=== PATIENT | male | born 1990 | race Asian ===

== ENCOUNTER 2017-04-13 15:52 | Emergency (ER) | payer OTHER ==
[~2017-04-13] VITALS: Ht 172.7 cm; Wt 67.7 kg
[2017-04-13 15:54] VITALS: BP 153/91; PULSE 106; O2SAT 100; Ht 172.7 cm; Wt 67.7 kg
[2017-04-13] MEDS ORDERED: HIV POST EXPOSURE PROPHYLAXIS KIT STA (17:08)
--- NOTE | 2017-04-13 17:31 | EMERGENCY ROOM VISIT NOTE ---
ED Visit Note First contact with patient: 16:00 CHIEF COMPLAINT: "I'm here for PEP" HISTORY OF PRESENT ILLNESS: This 26-year-old male patient presents to the emergency department, ambulatory, stating he would like postexposure prophylaxis for HIV. The patient was having intercourse with a male last night , when the condom broke. The patient states he was having anal sex, where he was inserting his penis into the other man's anus. The patient states he does not know the other gentleman, and has no way of knowing if the patient is HIV positive or would get tested. The patient states the other male was on PREP, however HIV status is unknown. The patient denies any extreme fatigue, penile discharge, urinary symptoms, or other concerning symptoms. REVIEW OF SYSTEMS: A 6 system review of systems was performed with positives and pertinent negatives listed in the history of present illness. All other systems were reviewed and are negative. ALLERGIES: None MEDICATIONS: None PMH: Eczema Social Hx: The patient lives locally with his boyfriend. He denies drug, tobacco use. He admits to occasional alcohol use. PHYSICAL EXAM: VITALS: Vitals are noted on the nurse's note and reviewed by myself. Vital signs stable. GENERAL: This is a 26 year old male, in no acute distress, nondiaphoretic , well-developed well-nourished. SKIN: The skin was without rashes, erythema, edema, or bruising. There is no tenting of the skin. Capillary reflex less than 2 seconds. NECK: Supple without nuchal rigidity. No lymphadenopathy. No thyromegaly. Cervical spine is nontender. No JVD. HEART: Regular rate and rhythm without murmurs gallops or rubs. LUNGS: Clear to auscultation bilaterally without wheezes, rales or rhonchi. No dullness to percussion. No retractions or accessory muscle use. MUSCULOSKELETAL: No muscle atrophy, erythema, or edema noted. Full range of motion without joint tenderness in all extremities. No tenderness to palpation. Normal gait. Strength 5/5 throughout. NEURO: Patient was alert and oriented to person place and time. Normal sensation to light and sharp touch. No focal neurological deficits. EMERGENCY DEPARTMENT COURSE: She was seen and evaluated as above. I did contact the postexposure hotline. The patient's risk of garret HIV from a known HIV positive partner is 0.11%. With consistent use of PREP, the risk of garret HIV is approximately 15%. I did relay this information to the patient, and he states he would like to go forward with taking PEP medications. Baseline CMP was ordered and performed, and did not show abnormal liver enzymes. Other Baseline testing was ordered. The patient was given a home pack of PEP medications. I did offer STI prophylaxis and the patient declines. Discharge instructions were reviewed and the patient was discharged home in good condition. I attest that I have personally reviewed the patient's current medication list. Patient was found to have normal blood pressure on screening and does not require follow-up. DIFFERENTIAL DIAGNOSIS: HIV exposure, STI, UTI, and others DIAGNOSIS: High risk homosexual behavior, possible HIV exposure Current/Historical Medications Scheduled Ondasetron Odt (Zofran Odt), 4 MG SL Q6H Allergies Coded Allergies: No Known Allergies (Unverified , 01/02/16) Vital Signs Date Time Temp Pulse Resp B/P (MAP) Pulse Ox O2 Delivery O2 Flow Rate FiO2 04/13/17 15:54 106 16 153/91 100 Room Air Laboratory Results 04/13/17 16:48 Test 04/13/17 16:48 Anion Gap 10.0 mmol/L (3-11) Est Creatinine Clear Calc Drug Dose 94.8 ml/min Estimated GFR () 102.7 Estimated GFR (Non- 88.6 BUN/Creatinine Ratio 12.1 (10-20) Calcium Level 9.8 mg/dl (8.5-10.1) Total Bilirubin 0.5 mg/dl (0.2-1) Aspartate Amino Transf (AST/SGOT) 34 U/L (15-37) Alanine Aminotransferase (ALT/SGPT) 41 U/L (12-78) Alkaline Phosphatase 98 U/L (45-117) Total Protein 9.2 gm/dl (6.4-8.2) Albumin 4.8 gm/dl (3.4-5.0) Globulin 4.4 gm/dl (2.5-4.0) Albumin/Globulin Ratio 1.1 (0.9-2) Hepatitis C Antibody NEG (NEG) HIV (1&2) Ab and P24 Ag, 4th Gener NEG (NEG) Medications Administered Medications (Trade) Dose Ordered Sig/Luis Route Start Time Stop Time Status Last Admin Dose Admin Miscellaneous (Hiv Post Exposure Prophylaxis Kit) 1 ea NOW STAT N/A 04/13/17 17:08 04/13/17 17:09 DC 04/13/17 18:21 1 EA Departure Information Impression Primary Impression: High risk homosexual behavior Dispostion Home / Self-Care Condition GOOD Prescriptions Ondasetron Odt (ZOFRAN ODT) 4 Mg Tab 4 MG SL Q6H for Nausea, #6 TAB Prov: Lisandra Jackson PA-C 04/13/17 Referrals No Doctor, Assigned (PCP) Patient Instructions ED HIV Testing Off Site Referral, My [facility] Additional Instructions He was seen in the emergency department today for post exposure prophylaxis for HIV. You were given prescriptions for Truvada and Pivicay. Please take these medications one tablet orally once per day for 28 days. You will need to follow- up with the [facility] this week to get the rest of the prescription. As discussed, and these medications can cause liver toxicity as well as GI upset. You were given a prescription for Zofran to help with nausea. You were tested at baseline for hepatitis B, HIV, and hepatitis C. He did have a liver profile test performed as well, which was normal. You will need follow- up testing as follows: If the hepatitis B surface antibody is negative, you'll need to have hepatitis B vaccine series restarted. If this test is negative, at 6 months, after the vaccination series, you should have a hepatitis B total core antigen and hepatitis B surface antibody and titer performed. In 2 weeks, you must have a repeat CMP to evaluate your liver function. In 6 weeks, You will need to have a hepatitis [employer] test performed as well as a repeat HIV test. In 3-4 months, you should have a repeat HIV test. In 6 months, you should have a hepatitis C antibody test performed. Please follow up with the [facility] regarding this ongoing testing. You were provided the telephone number. Please call them tomorrow to schedule an appointment to be seen. As discussed, you may want to consider taking PREP for prophylaxis of HIV depending on your sexual practices. This is a daily medication that you take, and you should discuss this with your PCP. For more information, you may contact the PREP hotline at [phone]. Please return to the emergency department for concerning symptoms including severe nausea or vomiting, fever, penile discharge, severe fatigue, wounds that do not heal, or others.
[2017-04-13 17:35] LABS: BUN/CREATININE RATIO 12.1 (10-20); CALCIUM 9.8 mg/dl (8.5-10.1); CREATININE 1.15 mg/dl (0.60-1.40); POTASSIUM 3.6 mmol/L (3.5-5.1)
[2017-04-13 17:38] LABS: ALB/GLOB RATIO 1.1 (0.9-2)
[2017-04-13] MEDS ORDERED: ONDA4TAB10 SL (18:11)
== END 2017-04-13 18:28 | disposition home or self-care (01) ==
LOC: C.EDB 15:54 → C.EDD 18:28
DX: Z72.52 High risk homosexual behavior (principal)